=== PATIENT | male | born 1945 | race Caucasian/White ===

== ENCOUNTER → 2018-09-13 | Outpatient (CLI) | payer MEDICARE, OTHER ==
[~2018-09-13] MED LIST: ALEVE 220MG220 MG PO; ASPIRIN 81M81 MG/TA2 PO; ATROVENT I0.2 MG/1 M IH; COZAAR 25MG25 MG/TAB PO; COZAAR100 MG PO; CRESTOR 10MG10 MG PO; CRESTOR5 MG PO; MAGNESIUM250 M1 PO; ZYRTEC ALLERGY10 MG PO
== END ==
LOC: COL.RAD 11:15
DX: N43.3 Hydrocele, unspecified (principal)

== ENCOUNTER → 2020-01-18 | Outpatient (CLI) | payer MEDICARE, OTHER | LOC: COL.VAS 13:45 | DX: G45.3 Amaurosis fugax (principal) ==

== ENCOUNTER → 2020-02-01 | Outpatient (CLI) | payer MEDICARE, OTHER | LOC: COL.VAS 09:39 | DX: G45.3 Amaurosis fugax (principal); I34.0 Nonrheumatic mitral (valve) insufficiency ==

== ENCOUNTER 2021-02-13 13:44 | Inpatient (IN) | payer MEDICARE, OTHER ==
[~2021-02-13] VITALS: Ht 180.3 cm; Wt 88.8 kg
[2021-02-13 14:41] LABS: COLLECTION METHOD CLEAN CATCH
[2021-02-13 14:51] LABS: BASO % 0.2 % (0.0-2.0); EOS % 0.3 % (0-4.0); GRAN # 5.2 K/mm3 (1.4-6.5); HEMOGLOBIN 14.9 g/dl (13.5-18.0); LYMPH # 0.9 K/mm3 (1.2-3.4); LYMPH % 12.8 % (20.0-51.0); MEAN CELL VOLUME 91 fl (80.0-100.0); MEAN CORPUSCULAR HEMOGLOBIN 32 pg (27.0-31.0); MEAN CORPUSCULAR HGB CONC 36 g/dl (33.0-37.0); MEAN PLATELET VOLUME 10.8 fl (7.4-10.4); MONO # 0.6 K/mm3 (0.1-0.6); MONO % 8.4 % (1.7-9.3); PLATELET COUNT 126 K/mm3 (130-400); REDCELL DISTRIBUTION WIDTH-CV 12.1 % (11.5-14.5)
[2021-02-13 14:57] LABS: PH 7 (5-8); SQUAMOUS EPITHELIAL None Seen /hpf; URINE APPEARANCE Clear; URINE BACTERIA None Seen /hpf; URINE BILIRUBIN Negative (NEGATIVE); URINE BLOOD Negative (NEGATIVE); URINE COLOR Yellow; URINE GLUCOSE Negative (NEGATIVE); URINE KETONE Negative (NEGATIVE); URINE LEUKOCYTE ESTERASE Negative (NEGATIVE); URINE NITRATE Negative (NEGATIVE); URINE PROTEIN(semi-quant) Negative (NEGATIVE); URINE RBC 0-2 /hpf; URINE UROBILINOGEN Negative (NEGATIVE)
[2021-02-13 15:13] LABS: ALBUMIN 3.8 gm/dL (3.4-4.8); C-REACTIVE PROTEIN 0.02 mg/dL (0.00-0.50); CREATININE, serum 0.95 mg/dL (0.72-1.25); POTASSIUM 4.1 mmol/L (3.5-4.5); TOTAL PROTEIN 5.9 gm/dL (6.2-8.1)
[2021-02-13 15:54] LABS: PROLACTIN 10.3 ng/mL (3.46-19.40); TROPONIN-I 0.017 ng/mL (0.00-0.033)
[2021-02-13] MEDS ORDERED: RESTORIL 1515 MG/CAP PO (16:38)
[2021-02-13] MEDS ORDERED: LEXAPRO 10MG10 MG PO (16:39)
[2021-02-13] MEDS ORDERED: ZOVIRAX400 MG PO (16:39)
[2021-02-13] MEDS ORDERED: ALDACTONE50 MG PO (16:39)
[2021-02-13 17:27] LABS: GLUCOSE,CSF 56 mg/dL (40-70)
--- NOTE | 2021-02-13 19:35 | NUR ---
PT ARRIVES TO MEDICAL FLOOR AT APPROXIMATELY [facility] ON STRETCHER WITH AT BEDSIDE AND ED STAFF. PT WAS ABLE TO AMBULATE TO BED BY SCOOTING OVER TO BED, PT IS A/0X1, PLEASANT AND COOPERATIVE. UNABLE TO FULLY EXPRESS HIMSELF VERBALLY, VERBAL HESITATION NOTED AND CONFUSION NOTED WELL. PT UNABLE TO STATE YEAR NOR CURRENT PHYSICAL PLACE. PT NOTED TO HAVE RIGID BODILY SPASMS. THIS NURSE AND WILL WORK TOGETHER TO COMPLETE MED REC. PT'S ORIENTED TO ROOM, HOSPITAL POLICY AND POC. ASSESMENT COMPLETE. THIS NURSE HAS ANSWERED ALL QUESTIONS/ CONCERNS. BED LOW. YELLOW GOWN/SLIPPERS ON. BED ALARM ON. PT VISIBLE TO NURSES STATION. CALL LIGHT WITHIN REACH.
[2021-02-13 19:40] VITALS: BP 174/71; PULSE 68; TEMP 98.3
[2021-02-13] MEDS ORDERED: ONE-A-DAY ESSE1 EACH PO (20:36)
[2021-02-13] MEDS ORDERED: ARTIFICIAL TEAR15 M7 OP (20:37)
[2021-02-13] MEDS ORDERED: GENTEAL TEARS 015 M1 OP (20:37)
[2021-02-13 20:38] LABS: CSF APPEARANCE CLEAR; CSF COLOR COLORLESS
[2021-02-13] MEDS ORDERED: OMEGA-3 1000 MG1 CAP PO (20:38)
[2021-02-13 20:39] LABS: CSF RBC 506 /mm3 (0-0)
[2021-02-13] MEDS ORDERED: VELCADE3.5 MG IV (20:39)
[2021-02-13 20:47] LABS: CSF MONONUCLEAR 87 % (70-100); CSF POLYMORPHONUCLEAR 13 % (0-6)
[2021-02-13 21:09] VITALS: BP 166/62
[2021-02-14 00:26] VITALS: BP 159/74; PULSE 70; TEMP 97.9
[2021-02-14 04:20] VITALS: BP 148/76; PULSE 71; TEMP 98.3
--- NOTE | 2021-02-14 06:00 | NUR ---
Dr Lozano called regarding consult. Went to voicemail. Message left.
--- NOTE | 2021-02-14 06:12 | NUR ---
Patient remained very confused over night-pulling out IVs/yelling out that he had and asking for god. Continued to talk in his CPAP as if it was a phone. Unable to reorient. Denies pain/nausea/shortness of breath. VS remain stable. Denies current needs. Call light in reach. WIll monitor.
[2021-02-14 07:26] LABS: CALCIUM 9.2 mg/dL (8.4-10.2); CREATININE, serum 0.97 mg/dL (0.72-1.25); MAGNESIUM 1.9 mg/dL (1.6-2.6); POTASSIUM 4.1 mmol/L (3.5-4.5)
[2021-02-14 07:33] VITALS: BP 167/78; PULSE 81; TEMP 98.2
[2021-02-14 11:08] LABS: BODY FLUID PH (AMS) 9 (())
--- NOTE | 2021-02-14 13:00 | NUR ---
PT RESTING IN BED. MORNING MEDICATIONS GIVEN. SHIFT ASSESSMENT COMPLETED. PT VERY CONFUSED, WITH DELAYED RESPONSES AND SLOWED SPEECH. ABLE TO FOLLOW SOME VERBAL COMMANDS. RECEPTIVE TO PAIN WITH MCKENZIE INSERTION. AND DAUGHTER AT BEDSIDE. WILL CONTINUE TO MONITOR.
[2021-02-14 13:33] VITALS: BP 148/72; PULSE 81; TEMP 98.5
--- NOTE | 2021-02-14 14:01 | NUR ---
KERRIE met with the patient, his (Kylie, ph#[phone]), and daughter (Vikki, ph#[phone]) to discuss discharge plan. The patient lives in [place] with his . Vikki lives in [place]. Kylie reports that the patient is normally independent with his ADLs, but that he has had a decline in the last two weeks. She reports that if the patient needs any assistance, she is able to help him. He has a cane and CPAP. The patient's PCP is Dr. Jack Duffy and he receives his medications from [facility]. The patient does not have a DPOA-HC in EMR, but Kylie reports that the patient does have one completed and that it designates her. SW attempted to contact the patient's PCP's office to inquire if they have a copy. SW left them a voicemail. The patient is on chemo for multiple myeloma. He has had increased delirium. The patient's and daughter are unsure of discharge plan at this time. They report that neurology has been consulted and that neuro really needs to see the patient and talk to them, before they can make any decisions. PT/OT have been ordered. SW to continue to follow. *Discharge plan: unknown at this time*
--- NOTE | 2021-02-14 14:26 | NUR ---
Primary nurse was assisted with [id number] [employer] AD[employer] student Hi Darby and [facility] instructor Cora Swartz MSN, RN
[2021-02-14 16:30] VITALS: BP 137/62; PULSE 83; TEMP 99.1
[2021-02-14 20:14] VITALS: BP 138/54; PULSE 90; TEMP 97.6
--- NOTE | 2021-02-14 22:29 | NUR ---
THIS NURSE RESPONDS TO PATIENTS BED ALARM PT WAS ATTEMPTING TO EXIT BED AND WAS WITNESSED ATTEMPTING TO PULL OUT MCKENZIE. PT IS COMPLETELY DISORIENTED AND CONFUSED AND MAKING REMARKS SUCH " THE DEVIL SAID THAT GOD WAS RIGHT". PT IS VERY RELUCTANT TO ASSISTANCE AND CARE. THIS NURSE WILL CONTINUE TO MONITOR. PT BED ALARM ON. BED LOW. PT VISIBLE TO NURSES STATION.
[2021-02-15] VITALS (10 sets, daily range): BP systolic 96–167; BP diastolic 51–72; PULSE 66–89; TEMP 97.5–98.8
--- NOTE | 2021-02-15 04:52 | NUR ---
AFTER DISORIENTATION EPISODE EARLIER THIS NIGHT AND MEDICATION ADMINISTRATION PT HAS REMAINED ASLEEP FOR THE MAJORITY OF THE NIGHT. JONAH REMAINS C&D. PT CHANGED. ALL NEEDS MET THIS NIGHT. CALL LIGHT WITHIN REACH.
--- NOTE | 2021-02-15 10:51 | NUR ---
PT RESTING IN BED. MORNING MEDICATIONS GIVEN. SHIFT ASSESSMENT COMPLETED. PT COMPLAINS OF PAIN TO HIS BACK AND PENIS, TYLENOL GIVEN PER JUN. WAS TOLD IN REPORT THAT PT HAD BEEN PULLING AT CATHETER OVER NIGHT. PT CONFUSED BUT MUCH MORE ALERT THAN YESTERDAY. DENIES ANY NEEDS. WILL CONTINUE TO MONITOR.
--- NOTE | 2021-02-15 12:07 | NUR ---
DISCONTINUED MCKENZIE PER ORDERS AT THIS TIME. OBTAINED ORTHOSTATIC BLOOD PRESSURES. SUPINE 121/62, SITTING 121/64, STANDING 108/61.
[2021-02-15] MEDS ORDERED: NEURONTIN300 MG/CAP PO (21:13)
[2021-02-16 03:29] VITALS: BP 114/63; PULSE 67; TEMP 97.8
--- NOTE | 2021-02-16 06:12 | NUR ---
PT SLEPT MAJORITY OF THIS NIGHT. PT REMAINED VERY COOPERATIVE AND MUCH LESS CONFUSED THAN PREVIOUS INCOME TAX EXPERT. PT REMAINS PLEASANTLY CONFUSED AND NOT AGITATED. PT STILL REQUIRES DIRECTION AND GUIDANCE FOR ADL'S. VSS.PT DENIES PAIN,N,V,D. CPAP WORN ALL NIGHT. I&O RECORDED. FR [address] ALL NEEDS MET THIS NIGHT. CALL LIGHT WITHIN REACH.
[2021-02-16 09:06] VITALS: BP 122/63; PULSE 67; TEMP 97.4
--- NOTE | 2021-02-16 10:34 | NUR ---
PT SITTING UP IN BED. MORNING MEDICATIONS GIVEN. SHIFT ASSESSMENT COMPLETED. PT CONFUSED THIS MORNING, ABLE TO ANSWER NORMAL QUESTIONS BUT IS QUESTIONING AND CONFUSED ABOUT HIS CARE. WILL CONINUE TO MONITOR. AT BEDSIDE.
[2021-02-16 11:25] VITALS: BP 128/58; PULSE 72; TEMP 98.3
[2021-02-16 16:19] VITALS: BP 125/59; PULSE 71; TEMP 98.2
[2021-02-16 19:21] VITALS: BP 129/55; PULSE 71; TEMP 97.6
[2021-02-16 23:26] VITALS: BP 158/71; PULSE 76; TEMP 98.1
[2021-02-17 03:33] VITALS: BP 151/73; PULSE 72; TEMP 97.4
[2021-02-17 08:00] VITALS: BP 152/68; PULSE 76; TEMP 97.6
[2021-02-17 11:32] VITALS: BP 83/59; BP 95/66; PULSE 74; TEMP 97.9
[2021-02-17 12:09] VITALS: BP 113/51; PULSE 76; TEMP 97.6
[2021-02-17 12:41] LABS: HSV 2 DNA PCR QUAL Not Detected (())
--- NOTE | 2021-02-17 13:04 | NUR ---
Pt alert and oriented this morning but states he is a little confused of everything going on. Denies any pain but reports that bilateral legs feel numb due to neuropathy. Pt ambulating steadily with SBA. Has no N/V, good appetite. Breathing is even and unlabored on RA. Has no SOB. Pt's and daughter assisting patient with a shower. No further needs at this time.
--- NOTE | 2021-02-17 14:51 | NUR ---
SW attended clinical rounds. The patient's and daughter at bedside. The hospitalist addressed discharge plan and the options of SNF vs home health. The hospitalist and SW informed them that SNFs are not able to accept if they are wanting to continue chemo treatments and that a lot of patient's will hold off on treatment while they go to treatment. The patient's and daughter verbalized understanding. They report that the patient was probably going to be taking a break from chemo anyway, due to his hospital stay. His and daughter would like some time to think about the options. SW then followed up with his , Kylie, and daughter, Vikki. Vikki reports that she will be staying with the patient and Kylie to help them out. Kylie and Vikki report that they have decided to pursue going home with home health. SW provided them with Medicare.gov's list of home health agencies that serve [place]. Kylie chose [facility]. SW educated Kylie and Vikki about private duty services too and provided them a list of private duty agencies. SW also informed them about the 30 day window for SNF, if they get home and decide that the patient needs more care. Kylie and Vikki verbalized understanding. SW contacted and faxed a referral to Sabrina at [facility]. Sabrina reports that they are able to accept the patient for services. SW updated Kylie. PT is recommending a walker. SW addressed this with Kylie. Kylie reports that they do not have a walker and they would be interested in purchasing one through insurance. She was agreeable with getting one from [facility]. KERRIE contacted and faxed and emailed the walker order to Beatris at [facility]. Discharge plan: home with family support and home health*
[2021-02-17 17:18] VITALS: BP 117/56; PULSE 68; TEMP 97.4
--- NOTE | 2021-02-17 17:48 | NUR ---
Patient has been walking in the hallway with family with walker and gait belt and is steady on his feet. A&O, can be forgetful at times. VSS. IV CDI. Denies pain and discomfort. Family has been assisting with cares. No further needs expressed. Call light within reach
[2021-02-17 21:06] VITALS: BP 135/51; PULSE 73; TEMP 97.5
[2021-02-18 00:14] VITALS: BP 144/61; PULSE 76; TEMP 98.8
[2021-02-18 04:07] VITALS: BP 126/57; PULSE 59; TEMP 97.9
--- NOTE | 2021-02-18 05:43 | NUR ---
PT HAD UNEVENTFUL NIGHT. SLEPT MAJORITY OF THE NIGHT. ALL NEEDS MET THIS NIGHT. CALL LIGHT WITHIN REACH. BED LOW. BED ALARM ON. CHEMO PRECAUTIONS REMAIN IN PLACE.
[2021-02-18 06:32] LABS: BASO % 0.2 % (0.0-2.0); EOS # 0.1 K/mm3 (0.0-0.7); EOS % 0.9 % (0-4.0); GRAN # 4.6 K/mm3 (1.4-6.5); GRAN % 71.3 % (42.2-75.2); HEMATOCRIT 38.1 % (42.0-52.0); HEMOGLOBIN 13.1 g/dl (13.5-18.0); LYMPH # 1.2 K/mm3 (1.2-3.4); LYMPH % 18.2 % (20.0-51.0); MEAN CELL VOLUME 92 fl (80.0-100.0); MEAN CORPUSCULAR HEMOGLOBIN 32 pg (27.0-31.0); MEAN CORPUSCULAR HGB CONC 34 g/dl (33.0-37.0); MEAN PLATELET VOLUME 10.9 fl (7.4-10.4); MONO # 0.6 K/mm3 (0.1-0.6); MONO % 9.1 % (1.7-9.3); PLATELET COUNT 142 K/mm3 (130-400); RED BLOOD COUNT 4.15 M/mm3 (4.20-5.60); REDCELL DISTRIBUTION WIDTH-CV 12.7 % (11.5-14.5)
[2021-02-18 06:50] LABS: CALCIUM 8.5 mg/dL (8.4-10.2); CREATININE, serum 1.1 mg/dL (0.72-1.25); MAGNESIUM 1.7 mg/dL (1.6-2.6); POTASSIUM 4.2 mmol/L (3.5-4.5)
[2021-02-18 08:14] VITALS: BP 137/61; PULSE 70; TEMP 98.1
--- NOTE | 2021-02-18 09:39 | NUR ---
Pt assessment complete. Pt is sitting up in the chair upon entry, he is alert and oriented to person only. He is unable to tell where he is and the month without looking at the board. He denies any pain, but states he feels groggy this morning. He has no N/V. at bedside assisting patient at this time. Call light within reach. Will continue to monitor.
[2021-02-18] MEDS ORDERED: SEROQUEL 2525 MG/TAB PO ×3 (11:24→11:29)
--- NOTE | 2021-02-18 11:37 | NUR ---
SW attended clinical rounds. The patient's and daughter at bedside. The hospitalist is ready to discharge the patient today. KERRIE then followed up with the patient and his family. KERRIE presented and read the IM form outloud to the patient's , Kylie. Kylie verbalized understanding and signed the form. SW provided her with a copy. KERRIE contacted Rayshawn at [facility] to follow up on the walker order. Rayshawn reports that they are short staffed and asked if family could pick it up. KERRIE updated the patient's , Kylie. Kylie reports that they would be able to stop at [facility] on their way home today to pharmacy picking technician the walker. KERRIE notified Beatris at [facility]. The patient is to discharge back home with his family today, 02/18, with home health services for alf/PT/OT from [facility]. KERRIE notified and faxed orders to Sabrina at [facility]. No additional needs at this time.
[2021-02-18 12:17] VITALS: BP 119/48; PULSE 70; TEMP 97.6
--- NOTE | 2021-02-18 13:08 | NUR ---
Discharge paperwork and instructions reviewed with patient and his family. All questions answered at this time. IV to LFA dc'd catheter tip intact. Pt wheeled out of facility by a staff member at this time.
== END 2021-02-18 13:09 | disposition home health service (06) | DRG 884 ==
LOC: COL.ER 13:44 → MEDICAL 18:39
PROVIDERS: Nurse Practitioner; ADMIT Internal Medicine
DX: F03.91 Unspecified dementia, unspecified severity, with behavioral disturbance (principal); G93.41 Metabolic encephalopathy; E87.1 Hypo-osmolality and hyponatremia; C90.00 Multiple myeloma not having achieved remission; F05 Delirium due to known physiological condition; I10 Essential (primary) hypertension; E78.5 Hyperlipidemia, unspecified; F32.A Depression, unspecified; G62.9 Polyneuropathy, unspecified; G47.33 Obstructive sleep apnea (adult) (pediatric); Z23 Encounter for immunization
CPT/HCPCS: 99223-AI; 99232-AI; 99233-AI; 99239; A9585; J1650; J2060; J2405

== ENCOUNTER → 2021-02-24 | Outpatient (CLI) | payer MEDICARE, OTHER ==
[~2021-02-24] MED LIST changes: +ALDACTONE50 MG PO; +ARTIFICIAL TEAR15 M7 OP; +GENTEAL TEARS 015 M1 OP; +LEXAPRO 10MG10 MG PO; +NEURONTIN300 MG/CAP PO; +OMEGA-3 1000 MG1 CAP PO; +ONE-A-DAY ESSE1 EACH PO; +RESTORIL 1515 MG/CAP PO; +SEROQUEL 2525 MG/TAB PO; +VELCADE3.5 MG IV; +ZOVIRAX400 MG PO
[2021-02-24 15:16] LABS: ALBUMIN 3.6 gm/dL (3.4-4.8); BILIRUBIN,TOTAL 0.4 mg/dL (0.2-1.2); CALCIUM 9.1 mg/dL (8.4-10.2); CREATININE, serum 1.2 mg/dL (0.72-1.25); POTASSIUM 4.3 mmol/L (3.5-4.5); TOTAL PROTEIN 5.9 gm/dL (6.2-8.1)
[2021-02-24 15:18] LABS: BASO % 0.1 % (0.0-2.0); EOS % 0.1 % (0-4.0); GRAN # 5.4 K/mm3 (1.4-6.5); GRAN % 79.6 % (42.2-75.2); HEMATOCRIT 40.5 % (42.0-52.0); HEMOGLOBIN 13.7 g/dl (13.5-18.0); LYMPH # 0.8 K/mm3 (1.2-3.4); LYMPH % 12.3 % (20.0-51.0); MEAN CELL VOLUME 94 fl (80.0-100.0); MEAN CORPUSCULAR HEMOGLOBIN 32 pg (27.0-31.0); MEAN CORPUSCULAR HGB CONC 34 g/dl (33.0-37.0); MEAN PLATELET VOLUME 11.4 fl (7.4-10.4); MONO # 0.5 K/mm3 (0.1-0.6); MONO % 7.6 % (1.7-9.3); PLATELET COUNT 191 K/mm3 (130-400); REDCELL DISTRIBUTION WIDTH-CV 12.4 % (11.5-14.5)
== END ==
LOC: ZCOL.LAB 14:35
PROVIDERS: Nurse Practitioner Family
DX: G93.41 Metabolic encephalopathy (principal); E87.1 Hypo-osmolality and hyponatremia

== ENCOUNTER 2021-11-23 00:07 | Inpatient (IN) | payer MEDICARE ==
[~2021-11-23] VITALS: Ht 182.9 cm; Wt 103.6 kg
[2021-11-23 00:26] LABS: HEMATOCRIT 42.3 % (42.0-52.0); HEMOGLOBIN 14.6 g/dl (13.5-18.0); MEAN CELL VOLUME 90 fl (80.0-100.0); MEAN CORPUSCULAR HEMOGLOBIN 31 pg (27-31); MEAN CORPUSCULAR HGB CONC 35 g/dl (33.0-37.0); MEAN PLATELET VOLUME 12.2 fl (7.4-10.4); PLATELET COUNT 105 K/mm3 (130-400); RED BLOOD COUNT 4.69 M/mm3 (4.20-5.60); REDCELL DISTRIBUTION WIDTH-CV 13.2 % (11.5-14.5)
[2021-11-23 00:37] LABS: COLLECTION METHOD CLEAN CATCH
[2021-11-23 00:47] LABS: MUCOUS Present (NOT PRESENT); SQUAMOUS EPITHELIAL None Seen /hpf (0-10); URINE APPEARANCE Hazy (CLEAR/HAZY); URINE BACTERIA Rare /hpf (NONE SEEN); URINE COLOR Yellow (YELLOW); URINE RBC 0-2 /hpf (0-2)
[2021-11-23 00:48] LABS: PH 5 (5-8); URINE BLOOD 1+ (NEGATIVE); URINE GLUCOSE Negative (NEGATIVE); URINE KETONE Negative (NEGATIVE); URINE NITRATE Negative (NEGATIVE); URINE PROTEIN(semi-quant) 1+ (NEGATIVE); URINE UROBILINOGEN Negative (NEGATIVE)
[2021-11-23 00:50] LABS: TROPONIN-I 0.053 ng/mL (0.00-0.033)
[2021-11-23 00:51] LABS: ALBUMIN 3.4 gm/dL (3.4-4.8); CALCIUM 8.8 mg/dL (8.4-10.2); CREATININE, serum 2.03 mg/dL (0.72-1.25); POTASSIUM 5.1 mmol/L (3.5-4.5); TOTAL PROTEIN 6.6 gm/dL (6.2-8.1)
[2021-11-23 01:09] LABS: BAND 14 % (0-10); LYMPHOCYTE 4 % (20.0-51.0); NEUTROPHILS 81 % (42.0-75.2)
[2021-11-23 01:10] LABS: PLATELET ESTIMATE DECREASED (NORMAL)
[2021-11-23] MEDS ORDERED: MIRTAZAPINE7.5 MG PO (02:46)
[2021-11-23] MEDS ORDERED: ARICEPT 5MG PO (02:47)
[2021-11-23] MEDS ORDERED: ATROVENT NASAL15 ML (02:48)
[2021-11-23] MEDS ORDERED: CLINDAGEL 40 ML40 ML TP (02:49)
[2021-11-23] MEDS ORDERED: NATURAL MAGNES200 MG PO (02:50)
[2021-11-23 05:25] VITALS: BP 111/57; PULSE 76; TEMP 97.9
[2021-11-23 07:11] VITALS: BP 100/44; PULSE 64; TEMP 98
[2021-11-23 07:44] LABS: BASO % 0.1 % (0.0-2.0); GRAN # 10.1 K/mm3 (1.4-6.5); GRAN % 89.2 % (42.2-75.2); HEMATOCRIT 38.9 % (42.0-52.0); LYMPH # 0.6 K/mm3 (1.2-3.4); LYMPH % 5.6 % (20.0-51.0); MEAN CELL VOLUME 92 fl (80.0-100.0); MEAN CORPUSCULAR HEMOGLOBIN 31 pg (27-31); MEAN CORPUSCULAR HGB CONC 33 g/dl (33.0-37.0); MEAN PLATELET VOLUME 12.3 fl (7.4-10.4); MONO # 0.5 K/mm3 (0.1-0.6); MONO % 4.3 % (1.7-9.3); PLATELET COUNT 82 K/mm3 (130-400); RED BLOOD COUNT 4.22 M/mm3 (4.20-5.60); REDCELL DISTRIBUTION WIDTH-CV 13.3 % (11.5-14.5)
[2021-11-23] MEDS ORDERED: NINLARO3 MG PO (08:00)
[2021-11-23 08:01] LABS: CREATININE, serum 1.67 mg/dL (0.72-1.25); MAGNESIUM 1.9 mg/dL (1.6-2.6)
[2021-11-23 08:27] LABS: TROPONIN-I 0.079 ng/mL (0.00-0.033)
[2021-11-23] MEDS ORDERED: ATROVENT NASAL15 ML NAS (10:37)
[2021-11-23 11:52] VITALS: BP 132/77; PULSE 80; TEMP 98.2
[2021-11-23 16:06] VITALS: BP 139/61; PULSE 88; TEMP 97.8
[2021-11-23 20:41] VITALS: BP 112/49; PULSE 70; TEMP 98.4
[2021-11-24] VITALS (7 sets, daily range): BP systolic 117–145; BP diastolic 51–65; PULSE 69–81; TEMP 98–100.1
[2021-11-24 06:47] LABS: BASO % 0.2 % (0.0-2.0); CALCIUM 8.3 mg/dL (8.4-10.2); CREATININE, serum 1.41 mg/dL (0.72-1.25); GRAN # 9.3 K/mm3 (1.4-6.5); GRAN % 88.1 % (42.2-75.2); HEMOGLOBIN 14.1 g/dl (13.5-18.0); LYMPH # 0.7 K/mm3 (1.2-3.4); LYMPH % 6.6 % (20.0-51.0); MEAN CELL VOLUME 91 fl (80.0-100.0); MEAN CORPUSCULAR HEMOGLOBIN 31 pg (27-31); MEAN CORPUSCULAR HGB CONC 34 g/dl (33.0-37.0); MEAN PLATELET VOLUME 11.8 fl (7.4-10.4); MONO # 0.5 K/mm3 (0.1-0.6); MONO % 4.4 % (1.7-9.3); PLATELET COUNT 91 K/mm3 (130-400); POTASSIUM 3.7 mmol/L (3.5-4.5); RED BLOOD COUNT 4.63 M/mm3 (4.20-5.60); REDCELL DISTRIBUTION WIDTH-CV 13.6 % (11.5-14.5)
[2021-11-25 03:52] VITALS: BP 142/63; PULSE 67; TEMP 99.3
[2021-11-25 05:51] LABS: BASO % 0.2 % (0.0-2.0); EOS # 0.1 K/mm3 (0.0-0.7); EOS % 0.6 % (0.0-4.0); GRAN # 6.9 K/mm3 (1.4-6.5); GRAN % 78.6 % (42.2-75.2); HEMATOCRIT 37.4 % (42.0-52.0); HEMOGLOBIN 12.5 g/dl (13.5-18.0); LYMPH # 1.1 K/mm3 (1.2-3.4); LYMPH % 12.2 % (20.0-51.0); MEAN CELL VOLUME 92 fl (80.0-100.0); MEAN CORPUSCULAR HEMOGLOBIN 31 pg (27-31); MEAN CORPUSCULAR HGB CONC 33 g/dl (33.0-37.0); MEAN PLATELET VOLUME 11.7 fl (7.4-10.4); MONO # 0.7 K/mm3 (0.1-0.6); MONO % 7.8 % (1.7-9.3); PLATELET COUNT 92 K/mm3 (130-400); RED BLOOD COUNT 4.06 M/mm3 (4.20-5.60); REDCELL DISTRIBUTION WIDTH-CV 13.8 % (11.5-14.5)
[2021-11-25 06:04] LABS: CALCIUM 8.1 mg/dL (8.4-10.2); CREATININE, serum 1.11 mg/dL (0.72-1.25); POTASSIUM 3.8 mmol/L (3.5-4.5)
[2021-11-25 08:19] VITALS: BP 126/56; PULSE 67; TEMP 98.7
[2021-11-25 11:59] VITALS: BP 129/55; PULSE 77; TEMP 98.4
[2021-11-25 15:34] VITALS: BP 124/48; PULSE 74; TEMP 98.2
[2021-11-25 20:44] VITALS: BP 142/68; PULSE 78; TEMP 98.1
[2021-11-25 23:24] VITALS: BP 135/57; PULSE 70; TEMP 97.6
[2021-11-26 03:36] VITALS: BP 133/53; PULSE 73; TEMP 97.8
[2021-11-26 06:43] LABS: CALCIUM 8.2 mg/dL (8.4-10.2); CREATININE, serum 1.06 mg/dL (0.72-1.25); POTASSIUM 3.9 mmol/L (3.5-4.5)
[2021-11-26 06:50] LABS: BASO % 0.1 % (0.0-2.0); EOS # 0.1 K/mm3 (0.0-0.7); EOS % 1.5 % (0.0-4.0); GRAN # 5.3 K/mm3 (1.4-6.5); GRAN % 73.3 % (42.2-75.2); HEMATOCRIT 37.4 % (42.0-52.0); HEMOGLOBIN 12.8 g/dl (13.5-18.0); LYMPH # 1.1 K/mm3 (1.2-3.4); LYMPH % 14.6 % (20.0-51.0); MEAN CELL VOLUME 91 fl (80.0-100.0); MEAN CORPUSCULAR HEMOGLOBIN 31 pg (27-31); MEAN CORPUSCULAR HGB CONC 34 g/dl (33.0-37.0); MEAN PLATELET VOLUME 11.1 fl (7.4-10.4); MONO # 0.7 K/mm3 (0.1-0.6); MONO % 9.8 % (1.7-9.3); PLATELET COUNT 117 K/mm3 (130-400); RED BLOOD COUNT 4.12 M/mm3 (4.20-5.60)
[2021-11-26 07:51] VITALS: BP 137/57; PULSE 82; TEMP 98.2
[2021-11-26 11:12] VITALS: BP 131/58; PULSE 75; TEMP 98
[2021-11-26 16:01] VITALS: BP 142/63; PULSE 76; TEMP 98.4
[2021-11-26 19:40] VITALS: BP 122/56; PULSE 68; TEMP 98.4
[2021-11-26 23:55] VITALS: BP 136/57; PULSE 73; TEMP 97.8
[2021-11-27 04:26] VITALS: BP 129/50; PULSE 70; TEMP 98.5
[2021-11-27 06:17] LABS: BASO % 0.3 % (0.0-2.0); EOS # 0.1 K/mm3 (0.0-0.7); EOS % 0.9 % (0.0-4.0); GRAN # 5.6 K/mm3 (1.4-6.5); HEMATOCRIT 37.1 % (42.0-52.0); HEMOGLOBIN 12.6 g/dl (13.5-18.0); LYMPH # 1.2 K/mm3 (1.2-3.4); MEAN CELL VOLUME 90 fl (80.0-100.0); MEAN CORPUSCULAR HEMOGLOBIN 31 pg (27-31); MEAN CORPUSCULAR HGB CONC 34 g/dl (33.0-37.0); MEAN PLATELET VOLUME 10.6 fl (7.4-10.4); MONO # 0.8 K/mm3 (0.1-0.6); MONO % 10.6 % (1.7-9.3); PLATELET COUNT 163 K/mm3 (130-400); RED BLOOD COUNT 4.11 M/mm3 (4.20-5.60); REDCELL DISTRIBUTION WIDTH-CV 14.1 % (11.5-14.5)
[2021-11-27 06:28] LABS: CALCIUM 8.4 mg/dL (8.4-10.2); CREATININE, serum 1.12 mg/dL (0.72-1.25); POTASSIUM 4.2 mmol/L (3.5-4.5)
[2021-11-27 07:13] VITALS: BP 114/52; PULSE 67; TEMP 98.4
[2021-11-27 12:03] VITALS: BP 133/48; PULSE 72; TEMP 97.9
[2021-11-27 16:04] VITALS: BP 135/54; PULSE 64; TEMP 98.1
[2021-11-27 19:58] VITALS: BP 152/54; PULSE 75; TEMP 98.2
[2021-11-27 23:32] VITALS: BP 147/59; PULSE 75; TEMP 98.2
[2021-11-28 04:09] VITALS: BP 127/58; PULSE 64; TEMP 98.7
[2021-11-28 06:18] LABS: HEMATOCRIT 38.5 % (42.0-52.0); MEAN CELL VOLUME 91 fl (80.0-100.0); MEAN CORPUSCULAR HEMOGLOBIN 31 pg (27-31); MEAN CORPUSCULAR HGB CONC 34 g/dl (33.0-37.0); MEAN PLATELET VOLUME 10.8 fl (7.4-10.4); PLATELET COUNT 219 K/mm3 (130-400); RED BLOOD COUNT 4.23 M/mm3 (4.20-5.60); REDCELL DISTRIBUTION WIDTH-CV 14.1 % (11.5-14.5)
[2021-11-28 06:35] LABS: CALCIUM 8.7 mg/dL (8.4-10.2); CREATININE, serum 1.21 mg/dL (0.72-1.25); POTASSIUM 4.2 mmol/L (3.5-4.5)
[2021-11-28 07:01] LABS: EOSINOPHIL 1 % (0-4); LYMPHOCYTE 21 % (20.0-51.0); NEUTROPHILS 68 % (42.0-75.2); PLATELET ESTIMATE NORMAL (NORMAL)
[2021-11-28 08:22] VITALS: BP 132/63; PULSE 64; TEMP 98.1
[2021-11-28 11:55] VITALS: BP 139/58; PULSE 66; TEMP 97.4
[2021-11-28 15:43] VITALS: BP 148/57; PULSE 72; TEMP 97.5
[2021-11-28 19:31] VITALS: BP 137/51; PULSE 68; TEMP 98.2
[2021-11-28 23:48] VITALS: BP 133/62; PULSE 70; TEMP 97.6
[2021-11-29 03:57] VITALS: BP 140/56; PULSE 71; TEMP 97.5
[2021-11-29 07:09] VITALS: BP 127/66; PULSE 70; TEMP 98.6
[2021-11-29 11:11] VITALS: BP 136/53; PULSE 79; TEMP 97.6
[2021-11-29 15:44] VITALS: BP 114/47; PULSE 69; TEMP 98.1
[2021-11-29 20:16] VITALS: BP 109/50; PULSE 79; TEMP 98.1
[2021-11-30] VITALS (7 sets, daily range): BP systolic 114–134; BP diastolic 48–56; PULSE 66–71; TEMP 97.3–98.7
[2021-11-30 06:28] LABS: HEMATOCRIT 41.1 % (42.0-52.0); HEMOGLOBIN 13.6 g/dl (13.5-18.0); MEAN CELL VOLUME 93 fl (80.0-100.0); MEAN CORPUSCULAR HEMOGLOBIN 31 pg (27-31); MEAN CORPUSCULAR HGB CONC 33 g/dl (33.0-37.0); MEAN PLATELET VOLUME 10.2 fl (7.4-10.4); PLATELET COUNT 294 K/mm3 (130-400); RED BLOOD COUNT 4.42 M/mm3 (4.20-5.60); REDCELL DISTRIBUTION WIDTH-CV 13.9 % (11.5-14.5)
[2021-11-30 06:55] LABS: ALBUMIN 2.1 gm/dL (3.4-4.8); CALCIUM 8.6 mg/dL (8.4-10.2); CREATININE, serum 1.45 mg/dL (0.72-1.25); PHOSPHOROUS 3.6 mg/dL (2.3-4.7); POTASSIUM 4.3 mmol/L (3.5-4.5)
[2021-11-30 07:12] LABS: BAND 7 % (0-10); EOSINOPHIL 2 % (0-4); LYMPHOCYTE 20 % (20.0-51.0); NEUTROPHILS 59 % (42.0-75.2); PLATELET ESTIMATE NORMAL (NORMAL)
[2021-12-01 03:52] VITALS: BP 122/56; PULSE 76; TEMP 98.4
[2021-12-01 06:46] LABS: HEMOGLOBIN 11.9 g/dl (13.5-18.0); MEAN CELL VOLUME 91 fl (80.0-100.0); MEAN CORPUSCULAR HEMOGLOBIN 31 pg (27-31); MEAN CORPUSCULAR HGB CONC 34 g/dl (33.0-37.0); MEAN PLATELET VOLUME 10.1 fl (7.4-10.4); PLATELET COUNT 338 K/mm3 (130-400); RED BLOOD COUNT 3.88 M/mm3 (4.20-5.60); REDCELL DISTRIBUTION WIDTH-CV 13.9 % (11.5-14.5)
[2021-12-01 06:49] LABS: HEMATOCRIT 35.3 % (42.0-52.0)
[2021-12-01 06:51] LABS: CALCIUM 8.2 mg/dL (8.4-10.2); CREATININE, serum 1.49 mg/dL (0.72-1.25); PHOSPHOROUS 3.4 mg/dL (2.3-4.7); POTASSIUM 4.6 mmol/L (3.5-4.5)
[2021-12-01 06:58] VITALS: BP 116/50; PULSE 69; TEMP 98.5
[2021-12-01 07:45] LABS: BASOPHIL 1 % (0-2); EOSINOPHIL 4 % (0-4); LYMPHOCYTE 12 % (20.0-51.0); NEUTROPHILS 77 % (42.0-75.2); PLATELET ESTIMATE NORMAL (NORMAL)
[2021-12-01 11:34] VITALS: BP 117/46; PULSE 71; TEMP 98.7
[2021-12-01 15:29] VITALS: BP 117/51; PULSE 68; TEMP 98.5
[2021-12-01 20:23] VITALS: BP 138/52; PULSE 72; TEMP 98.1
[2021-12-01 23:02] VITALS: BP 106/41; PULSE 65; TEMP 98.6
[2021-12-02 03:19] VITALS: BP 118/40; PULSE 86; TEMP 97.6
[2021-12-02 06:36] LABS: HEMATOCRIT 37.4 % (42.0-52.0); HEMOGLOBIN 12.4 g/dl (13.5-18.0); MEAN CELL VOLUME 93 fl (80.0-100.0); MEAN CORPUSCULAR HEMOGLOBIN 31 pg (27-31); MEAN CORPUSCULAR HGB CONC 33 g/dl (33.0-37.0); PLATELET COUNT 364 K/mm3 (130-400); RED BLOOD COUNT 4.02 M/mm3 (4.20-5.60); REDCELL DISTRIBUTION WIDTH-CV 13.6 % (11.5-14.5)
[2021-12-02 07:01] LABS: CALCIUM 8.4 mg/dL (8.4-10.2); CREATININE, serum 1.52 mg/dL (0.72-1.25); MAGNESIUM 2.2 mg/dL (1.6-2.6); PHOSPHOROUS 3.2 mg/dL (2.3-4.7); POTASSIUM 5.5 mmol/L (3.5-4.5)
[2021-12-02 07:42] LABS: BAND 5 % (0-10); LYMPHOCYTE 5 % (20.0-51.0); NEUTROPHILS 90 % (42.0-75.2); PLATELET ESTIMATE NORMAL (NORMAL)
[2021-12-02 07:59] VITALS: BP 88/74; PULSE 68; TEMP 97.7
[2021-12-02 11:32] VITALS: BP 136/49; PULSE 75; TEMP 97.8
[2021-12-02 15:55] VITALS: BP 123/47; PULSE 75; TEMP 98
[2021-12-02 19:48] VITALS: BP 146/63; PULSE 72; TEMP 98
[2021-12-02 23:59] VITALS: BP 141/62; PULSE 68; TEMP 97.5
[2021-12-03 04:01] VITALS: BP 135/58; PULSE 66; TEMP 97.7
[2021-12-03 06:09] LABS: MEAN CELL VOLUME 93 fl (80.0-100.0); MEAN CORPUSCULAR HEMOGLOBIN 30 pg (27-31); MEAN CORPUSCULAR HGB CONC 32 g/dl (33.0-37.0); PLATELET COUNT 385 K/mm3 (130-400); RED BLOOD COUNT 3.65 M/mm3 (4.20-5.60); REDCELL DISTRIBUTION WIDTH-CV 13.8 % (11.5-14.5)
[2021-12-03 06:22] LABS: HEMATOCRIT 34.1 % (42.0-52.0)
[2021-12-03 06:25] LABS: ALBUMIN 1.9 gm/dL (3.4-4.8); C-REACTIVE PROTEIN 2.68 mg/dL (0.00-0.50); CREATININE, serum 1.16 mg/dL (0.72-1.25); MAGNESIUM 2.2 mg/dL (1.6-2.6); PHOSPHOROUS 2.7 mg/dL (2.3-4.7); POTASSIUM 5.2 mmol/L (3.5-4.5)
[2021-12-03 07:13] LABS: BAND 2 % (0-10); LYMPHOCYTE 3 % (20.0-51.0); NEUTROPHILS 93 % (42.0-75.2); PLATELET ESTIMATE NORMAL (NORMAL)
[2021-12-03 08:09] VITALS: BP 147/66; PULSE 62; TEMP 97.5
[2021-12-03 10:31] LABS: ANA SCREEN with REFLEX Indeterminate (Negative)
[2021-12-03 11:22] VITALS: BP 122/52; PULSE 61; TEMP 98.2
[2021-12-03 14:30] LABS: SPOTTED FEVER IGG ANTIBODY <1:64 (<1:64)
[2021-12-03 15:58] VITALS: BP 129/64; PULSE 71; TEMP 97.8
[2021-12-03 19:18] VITALS: BP 140/51; PULSE 69; TEMP 97.7
[2021-12-03 23:36] VITALS: BP 134/55; PULSE 60; TEMP 97.6
[2021-12-04 05:25] VITALS: BP 154/61; PULSE 64; TEMP 97.5
[2021-12-04 06:10] LABS: HEMOGLOBIN 11.1 g/dl (13.5-18.0); MEAN CELL VOLUME 96 fl (80.0-100.0); MEAN CORPUSCULAR HEMOGLOBIN 31 pg (27-31); MEAN CORPUSCULAR HGB CONC 32 g/dl (33.0-37.0); MEAN PLATELET VOLUME 9.9 fl (7.4-10.4); PLATELET COUNT 388 K/mm3 (130-400); RED BLOOD COUNT 3.61 M/mm3 (4.20-5.60); REDCELL DISTRIBUTION WIDTH-CV 13.9 % (11.5-14.5)
[2021-12-04 06:23] LABS: HEMATOCRIT 34.6 % (42.0-52.0)
[2021-12-04 06:27] LABS: ALBUMIN 2.1 gm/dL (3.4-4.8); C-REACTIVE PROTEIN 1.09 mg/dL (0.00-0.50); CALCIUM 8.1 mg/dL (8.4-10.2); CREATININE, serum 1.1 mg/dL (0.72-1.25); PHOSPHOROUS 3.1 mg/dL (2.3-4.7); POTASSIUM 5.3 mmol/L (3.5-4.5)
[2021-12-04 07:21] LABS: HYPOCHROMIA 1+; LYMPHOCYTE 10 % (20.0-51.0); NEUTROPHILS 88 % (42.0-75.2); PLATELET ESTIMATE NORMAL (NORMAL)
[2021-12-04 08:25] VITALS: BP 136/68; PULSE 79; TEMP 98
[2021-12-04 11:43] VITALS: BP 131/54; PULSE 55; TEMP 97.4
[2021-12-04 16:01] VITALS: BP 116/58; PULSE 64; TEMP 98
[2021-12-04 20:00] VITALS: BP 139/54; PULSE 58; TEMP 97.9
[2021-12-05 00:14] VITALS: BP 167/75; PULSE 58; TEMP 97.4
[2021-12-05 04:21] VITALS: BP 172/71; PULSE 57; TEMP 97.3
[2021-12-05 05:32] VITALS: BP 159/77
[2021-12-05 06:09] LABS: GRAN # 9.1 K/mm3 (1.4-6.5); GRAN % 87.2 % (42.2-75.2); HEMATOCRIT 36.3 % (42.0-52.0); HEMOGLOBIN 11.5 g/dl (13.5-18.0); LYMPH # 0.9 K/mm3 (1.2-3.4); LYMPH % 8.5 % (20.0-51.0); MEAN CELL VOLUME 97 fl (80.0-100.0); MEAN CORPUSCULAR HEMOGLOBIN 31 pg (27-31); MEAN CORPUSCULAR HGB CONC 32 g/dl (33.0-37.0); MEAN PLATELET VOLUME 9.9 fl (7.4-10.4); MONO # 0.4 K/mm3 (0.1-0.6); MONO % 3.4 % (1.7-9.3); PLATELET COUNT 419 K/mm3 (130-400); RED BLOOD COUNT 3.75 M/mm3 (4.20-5.60); REDCELL DISTRIBUTION WIDTH-CV 13.9 % (11.5-14.5)
[2021-12-05 06:23] LABS: CALCIUM 8.2 mg/dL (8.4-10.2); CREATININE, serum 1.16 mg/dL (0.72-1.25); POTASSIUM 4.9 mmol/L (3.5-4.5)
[2021-12-05 08:03] VITALS: BP 142/69; PULSE 62; TEMP 97.8
[2021-12-05] MEDS ORDERED: AMOXICILLIN 8751 TAB PO (09:06)
[2021-12-05] MEDS ORDERED: PREDNISONE20 MG PO (09:56)
[2021-12-05 11:50] VITALS: BP 142/69; PULSE 62; TEMP 97.8
[2021-12-05 12:37] VITALS: BP 158/66; PULSE 59; TEMP 98.2
[2021-12-06] MEDS ORDERED: TYLENOL 500MG500 MG PO (09:39)
[2021-12-06] MEDS ORDERED: ROXICODONE 55 MG/TAB PO (10:01)
[2021-12-30] MEDS ORDERED: ALDACTONE50 MG PO (01:35)
[2021-12-30] MEDS ORDERED: ZOVIRAX 200MG200 MG PO (01:36)
[2021-12-30] MEDS ORDERED: ARICEPT10 MG PO (01:38)
[2021-12-30] MEDS ORDERED: ZOVIRAX400 MG PO (01:38)
[2021-12-30] MEDS ORDERED: PREDNISONE10 MG PO (01:38)
[2021-12-30] MEDS ORDERED: CRESTOR 10MG10 MG PO (01:39)
[2021-12-30] MEDS ORDERED: GENTEAL TEARS 015 M1 OP (01:40)
[2021-12-30] MEDS ORDERED: MIRTAZAPINE7.5 MG PO (04:49)
[2021-12-30] MEDS ORDERED: FISH OIL 1000MG1 CAP PO (04:50)
== END 2021-12-05 16:00 | DRG 871 ==
LOC: COL.ER 00:07 → MEDICAL 02:45
PROVIDERS: Internal Medicine; Nurse Practitioner Primary Care; Physician Assistant; Student in an Organized Health Care Education/Training Program; ADMIT Student in an Organized Health Care Education/Training Program
PROC: 02HV33Z Insertion of Infusion Device into Superior Vena Cava, Percutaneous Approach (ICD-10-PCS; principal; 2021-12-02)
DX: A40.8 Other streptococcal sepsis (principal); I21.A1 Myocardial infarction type 2; C90.00 Multiple myeloma not having achieved remission; N17.9 Acute kidney failure, unspecified; D84.9 Immunodeficiency, unspecified; E87.1 Hypo-osmolality and hyponatremia; L03.115 Cellulitis of right lower limb; L02.415 Cutaneous abscess of right lower limb; M48.54XA Collapsed vertebra, not elsewhere classified, thoracic region, initial encounter for fracture; I10 Essential (primary) hypertension; F32.A Depression, unspecified; G62.9 Polyneuropathy, unspecified; G47.33 Obstructive sleep apnea (adult) (pediatric); Z20.822 Contact with and (suspected) exposure to COVID-19; E78.5 Hyperlipidemia, unspecified; F03.90 Unspecified dementia, unspecified severity, without behavioral disturbance, psychotic disturbance, mood disturbance, and anxiety; E87.70 Fluid overload, unspecified; D72.829 Elevated white blood cell count, unspecified; T38.0X5A Adverse effect of glucocorticoids and synthetic analogues, initial encounter; Y92.238 Other place in hospital as the place of occurrence of the external cause; M60.9 Myositis, unspecified; M71.21 Synovial cyst of popliteal space [Baker], right knee; L95.8 Other vasculitis limited to the skin; Z88.5 Allergy status to narcotic agent; Z88.8 Allergy status to other drugs, medicaments and biological substances; Z72.89 Other problems related to lifestyle; Z23 Encounter for immunization
CPT/HCPCS: 99222-AI; 99232-AI; 99233-AI; C1751; J1644; J1940; J2543; J2920; J3370; J7030; J7040; J7050; J7120; Q9967

== ENCOUNTER → 2022-05-14 | Outpatient (CLI) | payer MEDICARE ==
[~2022-05-14] MED LIST changes: +AMOXICILLIN 8751 TAB PO; +ARICEPT 5MG PO; +ARICEPT10 MG PO; +ATROVENT NASAL15 ML; +ATROVENT NASAL15 ML NAS; +CLINDAGEL 40 ML40 ML TP; +FISH OIL 1000MG1 CAP PO; +MIRTAZAPINE7.5 MG PO; +NATURAL MAGNES200 MG PO; +NINLARO3 MG PO; +PREDNISONE10 MG PO; +PREDNISONE20 MG PO; +ROXICODONE 55 MG/TAB PO; +TYLENOL 500MG500 MG PO; +ZOVIRAX 200MG200 MG PO
== END ==
LOC: COL.VAS 14:30
DX: G45.3 Amaurosis fugax (principal)